=== PATIENT | male | born 2000 | race Caucasian/White ===

== ENCOUNTER 2023-12-07 09:12 | Emergency (ER) | payer OTHER, SELFPAY ==
[2023-12-07 09:15] VITALS: BP 117/69
--- NOTE | 2023-12-07 09:23 | ED.GENMED ---
History of Present Illness
<Laurel Burroughs PA-C - Last Filed: 12/07/23 13:36>
General
Chief Complaint: Eye Problems
Source: patient
Exam Limitations: none
Time Seen by Provider: 12/07/23 09:23
Nursing documentation reviewed up to this point in time: agreed with
History of Present Illness
History of Present Illness:
22-year-old male with no past medical history presents emergency department today with concerns of an injury to the left cheek and lower eyelid following injury with a fishhook. Patient reports that he was getting set up to go fishing when the line
swung back at him and he injured a small cut under his eyelid. Patient states that after this, he had intermittent blurred vision to the left eye. Patient denies any eye pain. Patient denies any visual loss. Patient states that he is not sure if
the fishhook came in contact with his eye. Patient states that took number came in contact with the fish itself. Patient states that he likely has not had his tetanus vaccine within the last 5 years. Patient denies any other injuries.
Review of Systems
<Laurel Burroughs PA-C - Last Filed: 12/07/23 13:36>
Review of Systems
All Other Systems: ROS reviewed and negative except as documented in HPI and ROS
Phy Exam
<Laurel Burroughs PA-C - Last Filed: 12/07/23 13:36>
Physical Exam
Physical Exam:
General: Patient is well appearing and in no acute distress; non-toxic
Skin: Warm and dry, small abrasion noted to left infraorbital region
Head: Normocephalic, atraumatic
Eyes: Sclera non-icteric. No scleral erythema noted. EOMs intact. PERRLA. No corneal abrasion noted with fluorescein staining. No eyelid foreign bodies or lacerations.
Cardiac: Regular rate
Pulm: Normal respiratory effort
Neuro: CN II-XII intact, no focal neurologic deficits.
Psychiatric: Appropriate mood and affect.
Course
<Laurel Burroughs PA-C - Last Filed: 12/07/23 13:36>
Orders/Labs/Results
Orders:
Orders
12/07/23 09:49
Tetracaine HCl [Tetracaine 0.5% Ophthalmic Solution] 1 drop .ROUTE .STK-MED ONE
12/07/23 09:50
Visual Acuity- Treatment ONCE
Vital Signs
Initial and Last Documented VS:
Initial Vital Signs
Temp Pulse Resp BP Pulse Ox
98.3 F 65 16 117/69 100
12/07/23 09:15 12/07/23 09:15 12/07/23 09:15 12/07/23 09:15 12/07/23 09:15
Last Documented Vital Signs
Temp Pulse Resp BP Pulse Ox
98.3 F 65 16 117/69 100
12/07/23 09:15 12/07/23 09:15 12/07/23 09:15 12/07/23 09:15 12/07/23 09:15
<Matthew Harrington DO - Last Filed: 12/07/23 10:18>
Orders/Labs/Results
Orders:
Orders
12/07/23 09:49
Tetracaine HCl [Tetracaine 0.5% Ophthalmic Solution] 1 drop .ROUTE .STK-MED ONE
12/07/23 09:50
Visual Acuity- Treatment ONCE
Vital Signs
Initial and Last Documented VS:
Initial Vital Signs
Temp Pulse Resp BP Pulse Ox
98.3 F 65 16 117/69 100
12/07/23 09:15 12/07/23 09:15 12/07/23 09:15 12/07/23 09:15 12/07/23 09:15
Last Documented Vital Signs
Temp Pulse Resp BP Pulse Ox
98.3 F 65 16 117/69 100
12/07/23 09:15 12/07/23 09:15 12/07/23 09:15 12/07/23 09:15 12/07/23 09:15
<Laurel Burroughs PA-C - Last Filed: 12/07/23 13:36>
MDM/Problems Addressed
Differential Diagnosis Includes:
Differentials include corneal abrasion, skin abrasion, intra ocular foreign body
MDM/Problems Addressed:
22-year-old male presents emergency department today with concerns of an abrasion to the left infra orbital region as well as blurry vision in the left eye on and off following injury of the fishhook. Patient states that a clean fishhook flew back
in his face and caused a small injury to the skin and he is not sure if the fishhook came in contact his eye, however he has had on and off blurry vision. He denies eye pain, headache, visual loss, nausea or vomiting. Denies any foreign body. On
exam, he is well-appearing and sclera is not injected, he has no obvious foreign body, fluorescein staining he has no abrasion. Patient states that he thinks that the fishhook likely did not go in his eye. Advised patient to continue to monitor
his symptoms and schedule appoint with ophthalmology should his symptoms persist. Did discuss tetanus vaccination with patient. Did go over pros and cons. Highly recommended patient receive tetanus vaccination. Patient declining vaccination at
this time.
Chronic conditions affecting care:
n/a
Acute Exacerbation and/or Progression of Chronic Illness:
n/a
<Laurel Burroughs PA-C - Last Filed: 12/07/23 13:36>
*Pulse Oximetry
Patient hypoxic: no
*Critical Care Note
Total Time (30-74mins, 75-104mins- exclusive of procedures): Not Applicable
Data Reviewed
Review of Other/Old Records Reveals: Records (Reviewed ER physician augmentation from 08/20/2015 where patient was seen for facial injuries after ski boarding) and Discharge Summary (No discharge summaries in [facility] to review)
Source: patient and records
Prescriptions/Medications Considered But Not Given:
n/a
Further Testing Considered But Not Given:
n/a
<Laurel Burroughs PA-C - Last Filed: 12/07/23 13:36>
Patient Management
Escalation/DeEscalation of care consider admission/obs:
Admit not indicated, patient stable for discharge
ED Attending Note
<Laurel Burroughs PA-C - Last Filed: 12/07/23 13:36>
-
Portions of this chart may have been created with voice recognition software.� Occasional wrong word or��sound alike� substitutions may have occurred due to the inherent limitations of voice recognition software.
<Matthew Harrington DO - Last Filed: 12/07/23 10:18>
ED Attending Note
Patient seen and examined by attending physician: Yes
I performed the substantive portion of visit, reviewed & personally made and approve the management plan that is documented in note by myself or DAY.: Yes
ED Attending Note:
Seen with PA examined independently agree with assessment and plan superficial laceration under the left eye from a fishing hook does not appear to have any intra ocular injury
Discharge Plan
Departure
Patient Disposition: Home (Routine Discharge)
Date of Disposition: 12/07/23
Time of Disposition: 10:28
Patient with high blood pressure during this ER visit?: Yes
Condition: Good
Discharge Problem:
Blurred vision, left eye, Abrasion
Instructions: Taking care of cuts, scrapes, and puncture wounds, BLOOD PRESSURE
Prescriptions:
No Action
No Current Medications
0
Referrals:
Meri Ernst MD [Active] - Call in 1-3 days for appt
Activity Restrictions/Additional Instructions:
Please continue to monitor your symptoms.
Please schedule an appointment with ophthalmology should your blurry vision persist.
Please return to the emergency department should you experience persistent headaches, visual loss, eye pain.
Interventions
Interventions:
*Risk Screen - Suicide Last Done: 12/07/23 09:15
*General Assessment Last Done: 12/07/23 09:15
*Neglect/Abuse Screening Last Done: 12/07/23 09:15
ED- Fall Risk Assessment Last Done: 12/07/23 10:56
*ED COVID-19 Vaccine History Last Done: 12/07/23 10:56
*Nursing Disposition Last Done: 12/07/23 10:58
ED-Skin Assessment Last Done: 12/07/23 10:56
Discharge Date and Time
Discharge Date/Time: 12/07/23 10:58
Print Language: ESTONIAN
== END 2023-12-07 10:58 | disposition home or self-care (01) ==
LOC: EMR 09:12
PROVIDERS: EMERGENCY PHYSICIAN Emergency Medicine; FAMILY PHYSICIAN Nurse Practitioner
DX: S05.02XA Injury of conjunctiva and corneal abrasion without foreign body, left eye, initial encounter (principal); H53.8 Other visual disturbances; W20.8XXA Other cause of strike by thrown, projected or falling object, initial encounter
CPT/HCPCS: 99283

== ENCOUNTER 2023-12-30 22:59 | Day surgery (SDC) | payer OTHER, SELFPAY ==
[2023-12-30 18:53] VITALS: BP 139/84
--- NOTE | 2023-12-30 20:19 | ED.GENMED ---
History of Present Illness
General
Chief Complaint: Abdominal Pain
Source: patient
Exam Limitations: none
Time Seen by Provider: 12/30/23 19:39
Nursing documentation reviewed up to this point in time: agreed with
History of Present Illness
History of Present Illness:
Patient is a 23-year-old male who presents to the emergency department complaining of right-sided abdominal pain that started abruptly 4 hours ago with nausea and vomiting. Patient denies any back pain. Patient denies fever or chills. Patient
denies any diarrhea or constipation. Patient denies any blood in his urine. Patient denies any frequency, urgency, dysuria or hematuria. Patient denies any previous history of similar episodes. Patient denies history of appendectomy or kidney
stones. Patient denies any recent illnesses or injuries.
Past History
Past History
ED Past Medical History: None
ED Past Surgical History: Other (ENT)
Social History
Tobacco: Non-smoker
Review of Systems
Review of Systems
All Other Systems: ROS reviewed and negative except as documented in HPI and ROS
Constitutional: Reports no symptoms
EENT: Reports no symptoms
Respiratory: Reports no symptoms
Cardiac: Reports no symptoms
ABD/GI: Reports abdominal pain, nausea and vomiting; Denies diarrhea or constipated
: Denies dysuria, flank pain, urgency, bleeding or dark urine
Musculoskeletal: Denies back pain
Skin: Reports no symptoms
Neurological: Reports no symptoms
Hematologic/Lymphatic: Reports no symptoms
Psychiatric: Reports no symptoms
Phy Exam
Physical Exam
Physical Exam:
Physical Exam
General: moderate to severe distress, alert and appropriate, well nourished, well hydrated
HENT: Normocephalic, supple with no lymphadenopathy, no thyromegaly
Eyes: Clear sclera, conjuctiva without injection
Heart: Regular rhythm and rate. No S3, S4. No murmur.
Lungs: No respiratory distress, no stridor, lung sounds clear and equal bilaterally
Abdomen: Soft, moderate severe right-sided abdominal tenderness without guarding or rebound, no organomegaly, no CVA tenderness, BS good
Neuro: Alert and oriented x 3, CN II - XII intact, no motor focality, no cerebellar dysfunction
Skin: no rash
Psychiatric: well kept. interactive and cooperative
Extremities: No edema, cyanosis, tenderness, Good and equal peripheral pulses.
Course
Orders/Labs/Results
Orders:
Orders
12/30/23 19:45
Urinalysis Reflex To Culture Urgent
0.9% Sodium Chloride 1000 ml [Nss] 1,000 ml IV BOLUS
HYDROmorphone [Dilaudid] 0.5 mg IV NOW STA
Ketorolac [Toradol] 15 mg IV NOW STA
Ondansetron Injectable [Zofran] 4 mg IV NOW STA
12/30/23 19:46
CT Abd/pel Without Iv Or Oral Urgent
Comment:
Reason For Exam: right sided pain
12/30/23 20:21
Complete Blood Count/With Diff Urgent
Comprehensive Metabolic Panel Urgent
Lipase Urgent
Abnormal Lab Results
12/30/23
20:21
WBC 14.7 H 10^3/uL
(4.8-10.8)
Abs Immat Gran (auto) 0.1 H 10^3/uL
(0-0.05)
Absolute Neuts (auto) 12.0 H 10^3/uL
(1.4-6.5)
Absolute Monos (auto) 1.1 H 10^3/uL
(0.1-0.6)
Neutrophils % 81.5 H %
(42.2-75.2)
Lymphocytes % 10.5 L %
(20.5-51.1)
Albumin 5.4 H g/dl
(3.5-5.0)
12/30/23 20:21
12/30/23 20:21
Vital Signs
Initial and Last Documented VS:
Initial Vital Signs
Temp Pulse Resp BP Pulse Ox
97.7 F 61 16 139/84 100
12/30/23 18:53 12/30/23 18:53 12/30/23 18:53 12/30/23 18:53 12/30/23 18:53
Last Documented Vital Signs
Temp Pulse Resp BP Pulse Ox
97.7 F 69 16 120/93 98
12/30/23 18:53 12/30/23 21:00 12/30/23 21:00 12/30/23 21:00 12/30/23 21:00
*Radiology
Radiology exam reviewed: radiology read reviewed (Appendicitis)
*Pulse Oximetry
Patient hypoxic: no
*EKG
Interpreted by ED Provider?: NA
*Asphalt Paving Superintendent Interpretation
Rate: Asphalt Paving Superintendent- N/A
*Critical Care Note
Total Time (30-74mins, 75-104mins- exclusive of procedures): Not Applicable
ED Attending Note
-
Portions of this chart may have been created with voice recognition software.� Occasional wrong word or��sound alike� substitutions may have occurred due to the inherent limitations of voice recognition software.
Discharge Plan
Departure
Patient Disposition: Admit
Date of Disposition: 12/30/23
Time of Disposition: 21:58
Admit to: Med/Surg
Admit to doctor: Surgery
Presentation/result/management discussed w/ accepting MD/DO: Surgery
Patient with high blood pressure during this ER visit?: No
Condition: Serious
Covid-19: Not Applicable
Discharge Problem:
Acute appendicitis
Prescriptions:
No Action
Theragen Tablet
1 tab PO DAILY
Referrals:
Baron Mariscal MD [Family Provider] -
Interventions
Interventions:
*Risk Screen - Suicide Last Done: 12/30/23 18:55
*General Assessment Last Done: 12/30/23 20:07
*Neglect/Abuse Screening Last Done: 12/30/23 18:55
ED- Fall Risk Assessment Last Done: 12/30/23 20:07
*ED COVID-19 Vaccine History Last Done: 12/30/23 18:54
DM-Mmuzpg-Nvzzctvevz Assessment Last Done: 12/30/23 20:07
Discharge Date and Time
Print Language: ROMANSH
[2023-12-30] MEDS: NSS 1000 IV (20:22)
[2023-12-30] MEDS: ZOFRAN 4 MG IV (20:23)
[2023-12-30] MEDS: TORADOL 15 MG IV (20:24)
[2023-12-30] MEDS: DILAUDID 0.5 MG IV ×2 (20:26→23:27)
[2023-12-30 20:35] LABS: % Basophils 0.3 % (0-2); % Eosinophils 0.3 % (0-6); % Immature Granulocytes 0.3 % (0-0.5); % Lymphocytes 10.5 % (20.5-51.1); % Monocytes 7.1 % (1.7-9.3); % Neutrophils 81.5 % (42.2-75.2); Absolute Basophils 0.1 10^3/uL (0-0.2); Absolute Immature Granulocytes 0.1 10^3/uL (0-0.05); Absolute Lymphocytes 1.6 10^3/uL (1.2-3.4); Absolute Monocytes 1.1 10^3/uL (0.1-0.6); Hematocrit 43.1 % (39.0-52.0); Hemoglobin 15.4 g/dL (13.0-18.0); Mean Corp Hgb Conc. 35.7 g/dL (33.0-37.0); Mean Corpuscular Hgb 29.7 pg (27.0-31.0); Mean Corpuscular Volume 83.2 fL (80.0-94.0); Mean Platelet Volume 10.3 fL (7.4-10.4); Nucleated Red Blood Cells % 0 % (-); Platelet Count 230 10^3/uL (130-400); Red Blood Cell Count 5.18 10^6/uL (4.70-6.10); Red Cell Dist. Width 12.3 % (11.5-14.5); White Blood Cell Count 14.7 10^3/uL (4.8-10.8)
[2023-12-30 20:54] LABS: ALT (SGPT) 22 U/L (0-50); AST (SGOT) 24 U/L (17-59); Albumin 5.4 g/dl (3.5-5.0); Alkaline Phosphatase 40 U/L (38-126); Blood Urea Nitrogen 15 mg/dl (9-20); Calcium 10.2 mg/dl (8.4-10.2); Carbon Dioxide 23 mmol/L (22-30); Chloride 101 mmol/L (98-107); Glucose 97 mg/dl (70-99); Sodium 141 mmol/L (135-145); Total Bilirubin 0.8 mg/dl (0.2-1.3); Total Protein 8.1 g/dl (6.3-8.2); eGFR > 60.00
[2023-12-30 20:56] LABS: Lipase 62 U/L (23-300)
[2023-12-30 20:59] VITALS: BMI 23.6
[2023-12-30 21:00] VITALS: BP 120/93
[2023-12-30 22:00] VITALS: BP 117/58
[2023-12-30] MEDS: ZOSYN 50 IV (22:25)
--- NOTE | 2023-12-30 22:44 | HPS.HSE ---
Addendum entered and electronically signed by Naveen Oliveira MD 12/31/23 08:23:
Patient seen and examined.
Patient is a 23 yo M with no pertinent PMH who presented to the hospital with less than 24 hours of RLQ abdominal pain. Josesito states that his pain began acutely yesterday at approximately 3 PM while at work. Symptoms persisted for a few hours
prompting presentation to the ED. She reports sharp stabbing RUQ abdominal pain. Associated nausea, but no vomiting. No fevers or chills. Looser, nonbloody stools. No chronic GI issues. No family history notable for IBD or colon cancer.
Gen: NAD
Abd: soft, tender to palpation in RLQ, ND, localized peritonitis
Labs and CT scan imaging were reviewed
Patient is a 23 yo M p/w acute appendicitis.
The natural history and pathophysiology of appendicitis was discussed. Anatomy and CT scan imaging were reviewed. Options for management including medical management with antibiotics versus surgical management with appendectomy were considered and
discussed. The pros and cons of both approaches was discussed. Specifically, we discussed failure of medical management and future episodes of appendicitis versus surgical risks. Patient would like to proceed with appendectomy.
Plan for laparoscopic appendectomy. The procedure itself, as well as the risks, benefits, and alternatives was discussed. Specifically, we discussed the risks of bleeding, infection, injury to surrounding structures (bowel, bladder), staple line
leak, need for open procedure. Typical postprocedural coverage was discussed. All questions answered. Consent signed.
-- Laparoscopic appendectomy
-- Abx: Zosyn
-- Pain control: Tylenol and IV Dilaudid
-- NPO, IVF
Original Note:
Family Physician
-
Family Physician: Baron Mariscal
Chief Complaint
-
Abdominal pain
History of Present Illness
a 23 years old male with no PMH present in ER with a complain of abdominal pain. Pain started on the RT side of the abdomen around 4-5 hrs before arriving to the ER. Describes his pain as aching and stabbing rated 7/10 of pain scale. Pain increases
with movement. Symptoms associated with nausea. He mentioned that he had one episode of diarrhea then constipation. He is usually have bowel movement daily.
Denies vomiting, SOB, chest pain, fever, chills, urinary symptoms or any other symptoms. Patient denies taking any prescribe meds at home.
Medical History
Past Medical History
Past Medical History: Reports None and Other (Migraine)
Past Surgical History: Reports Other (ENT/ Broken nose)
Social History
Tobacco: Non-smoker
Alcohol: Occasional
Drug: Marijuana
Personal: Other
Living: With Family
Employment: Employed
Family History
Family History: Not pertinent
Allergies / Home Medications
Allergies reflects when Allergies were last updated in [email or web address].
Home Medications with original date entered in [email or web address]
Allergy/Medication List:
Patient Allergies
Allergy/AdvReac Type Severity Reaction Status Date / Time
No Known Allergies Allergy Verified 08/25/15 11:24
Home Medications Table - record
�Medication �Instructions �Recorded �Confirmed
therapeutic multivitamin 1 tab PO DAILY 12/30/23 12/30/23
Review of Systems
-
A 12 point ROS was completed and negative except as noted: Yes
Constitutional: Reports No Symptoms
EENT: Reports No Symptoms
Respiratory: Reports No Symptoms
Cardiac: Reports No Symptoms
Abdomen/GI: Reports Abdominal Pain and Nausea
: Reports No Symptoms
Musculoskeletal: Reports No Symptoms
Skin: Reports No Symptoms
Neurological: Reports No Symptoms
Physical Exam
Vital Signs
Vital Signs
Temp Pulse Resp BP Pulse Ox
97.7 F 69 16 120/93 98
12/30/23 18:53 12/30/23 21:00 12/30/23 21:00 12/30/23 21:00 12/30/23 21:00
Physical Exam
General: No Apparent Distress
HEENT: NormoCephalic
Respiratory: Clear
Cardiac: Regular Rhythm
GI: Soft, Normal Bowel Sounds and Tender (RT side of the abdomen + for McBurney`s sign and neg to Obturator sign)
Musculoskeletal: No Edema
Neuro: Awake and AO x 3
Laboratory Results
-
12/30/23 20:21
12/30/23 20:21
Laboratory Results
Total Bilirubin 0.8 mg/dl (0.2-1.3) 12/30/23 20:21
AST 24 U/L (17-59) 12/30/23 20:21
ALT 22 U/L (0-50) 12/30/23 20:21
Alkaline Phosphatase 40 U/L (38-126) 12/30/23 20:21
Lipase 62 U/L (23-300) 12/30/23 20:21
Data Reviewed
-
CT Scan: Discussed with Patient
Lab Data: Discussed with Patient
Impression/Plan
-
Abd/PLVS CT shows Appendix, particularly the proximal appendix borderline enlarged at 0.8 cm with some likely mild proximal periappendiceal stranding. Findings are at least suspicious for acute appendicitis.
WBC 14.7
IMPRESSION:
Acute appendicitis
PLAN:
Admit/ observation/ med-surg Dr. Oliveira ( surgical services )
NPO
IVF
Abx
antiemetics as needed
analgesics as needed
DVT prophylaxis SCDs
Code Status: Full code
[2023-12-30 23:52] VITALS: BP 125/56; BMI 23.2
[2023-12-31] VITALS (14 sets, daily range): BP systolic 92–125; BP diastolic 43–61
[2023-12-31] MEDS: DILAUDID 0.25 MG IV ×2 (00:22→05:21)
--- NOTE | 2023-12-31 00:41 | PTCARENOTE ---
pt admitted to room 407-1, AAOX3, arrived with belongings. Oriented to room, call sheth, and POC. pt verbalized understanding. Admission assessment completed. IVF NSS @80cc/hr via pump infusing.
[2023-12-31] MEDS: NSS 1000 IV ×2 (02:04→05:16)
[2023-12-31] MEDS: DILAUDID 0.5 MG IV ×3 (02:55→23:38)
[2023-12-31] MEDS: ZOSYN 50 IV (05:17)
--- NOTE | 2023-12-31 08:28 | W.SUR.PREOP ---
Pre-Operative Surgical Note
-
I have examined this patient prior to the performance of the scheduled procedure.
The patient's condition is unchanged from the time of the current History and
Physical and the patient is able to undergo the scheduled procedure.
[2023-12-31] MEDS: COLACE 100 MG PO ×2 (09:47→20:09)
--- NOTE | 2023-12-31 13:36 | W.IMMPOSTOP ---
Surgical Immed Post Op Note
-
Primary Surgeon: Roxanne
Assisting Surgeon: None
Pre-op Diagnosis: Acute appendicitis
Post-op Diagnosis: Acute appendicitis
Procedure Performed: Laparoscopic appendectomy
Anesthesia Type: General
Specimen / Cultures:
1. Appendix
Estimated Blood Loss: 3 cc
Complications: None
Operative Findings:
1. Acutely inflamed and dilated appendix, no evidence of perforation, serous reactive fluid
2. Base with olvera load stapler, mesentery with Voyant
[2023-12-31] MEDS: ZOSYN IV (14:06)
--- NOTE | 2023-12-31 14:49 | CM ---
CM attempted to zachary janet Bellamy, however he has been in OR. MARLYN met with Josesito's parents to complete IA. Josesito lives with his parents in a 2 story home with 5 entry steps. His bedroom and bathroom are on the second floor, however parents
advised a first floor set up would be available if needed.
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 Discussed FMLA as an option to consider if he is unable to drive to work (unsure if he works remotely, or in an office).
Plan: Discharge to home with his parents. No discharge needs identified.
--- NOTE | 2023-12-31 15:42 | PTCARENOTE ---
Received pt from PACU via bed, accompanied by PACU staff. Pt drowsy but arousable; alert; oriented x 3 when awake; ULRICH. VSS. On nc 2 lpm- pulse ox 98%, pt denies SOB, lungs clear bilaterally. Abd soft, sl rounded, non-tender, BS (+); generally
decreased. Pt to start regular diet. pt DTV post-op; urinal at bedside. Abd incision sites x4 with dermabond; FRUIT CHECKER; no drainage noted. Ice pack to site. Temp 97.6 PO. Knee high SCDs in place. IVF's NSS @ 80 ml/hr resumed via Rt AC site, currently
infusing without sx of infiltration. Pt resting comfortably at present; family at bedside. Will continue to monitor.
--- NOTE | 2023-12-31 18:08 | PTCARENOTE ---
Pt resting quietly since return from OR/PACU; c/o abd pain '09/03'; requesting IV Dilaudid for pain management. Howard regular diet. IVF's dc'd as ordered. Pt requesting to stay overnight for pain management. Dr. Keene notified. Will continue to
monitor.
[2023-12-31] MEDS: ROXICODONE 5 MG PO (20:09)
[2023-12-31] MEDS: TORADOL 10 MG IV (21:22)
[2024-01-01] MEDS: ROXICODONE 5 MG PO (03:11)
[2024-01-01] MEDS: TYLENOL 650 MG PO (03:12)
[2024-01-01 03:16] VITALS: BP 109/50
[2024-01-01 07:40] VITALS: BP 126/57
[2024-01-01 07:55] VITALS: BP 126/57
[2024-01-01] MEDS: COLACE PO (09:01)
[2024-01-01 12:17] VITALS: BP 123/57
== END 2024-01-01 12:30 | disposition home or self-care (01) ==
LOC: SDS 22:59
PROVIDERS: ATTENDING PHYSICIAN Surgery; EMERGENCY PHYSICIAN Emergency Medicine; FAMILY PHYSICIAN Family Medicine
DX: K35.80 Unspecified acute appendicitis (principal)
CPT/HCPCS: 44970; 88304; 74176; 80053; 83690; 85025; 96361; 96365; 96375; 99285; C1776